=== PATIENT | female | born 1965 | race Caucasian/White ===

== ENCOUNTER 2022-01-12 14:09 | Emergency (ER) | payer MEDICAID, OTHER ==
[~2022-01-12] VITALS: Ht 157.5 cm; Wt 53.5 kg
[2022-01-12 14:18] VITALS: BP 158/111
[2022-01-12 23:41] LABS: Urine Bacteria MANY /hpf (None Seen); Urine Blood Negative /uL (Negative); Urine Specific Gravity 1.022 (1.001-1.035); Urine WBC 20 /hpf (0 - 5)
== END 2022-01-12 23:30 | disposition left against medical advice (07) ==
LOC: ER 14:09
DX: N93.9 Abnormal uterine and vaginal bleeding, unspecified (principal); Z53.21 Procedure and treatment not carried out due to patient leaving prior to being seen by health care provider
CPT/HCPCS: 81001

== ENCOUNTER 2022-01-13 12:31 | Emergency (ER) | payer MEDICAID, OTHER ==
[~2022-01-13] VITALS: Ht 167.6 cm; Wt 53.0 kg
[2022-01-13 12:58] VITALS: BP 142/86
== END 2022-01-14 03:48 | disposition left against medical advice (07) ==
LOC: ER 12:31
DX: R45.851 Suicidal ideations (principal); Z53.29 Procedure and treatment not carried out because of patient's decision for other reasons
CPT/HCPCS: 36415; 80320

== ENCOUNTER 2022-11-20 16:03 | Emergency (ER) | payer MEDICAID, OTHER ==
[~2022-11-20] VITALS: Ht 162.6 cm; Wt 53.8 kg
[2022-11-20 18:24] LABS: Urine Bacteria FEW /hpf (None Seen); Urine Blood Negative /uL (Negative); Urine Clarity HAZY (Clear); Urine Color Yellow (Yellow); Urine Protein, UAD TRACE (Negative); Urine Specific Gravity 1.019 (1.001-1.035); Urine WBC 55 /hpf (0 - 5); Urine pH 6.5 (5.0-8.0)
[2022-11-20] MEDS ORDERED: CIPR-173 PO (18:29)
[2022-11-20 18:36] VITALS: BP 176/95; PULSE 86; RESP 17; TEMP 99.2; O2SAT 98
== END 2022-11-20 18:37 | disposition home or self-care (01) ==
LOC: ER 16:03
DX: N39.0 Urinary tract infection, site not specified (principal); F17.210 Nicotine dependence, cigarettes, uncomplicated; F12.10 Cannabis abuse, uncomplicated; F15.10 Other stimulant abuse, uncomplicated; F11.10 Opioid abuse, uncomplicated; F14.10 Cocaine abuse, uncomplicated; Z88.2 Allergy status to sulfonamides
CPT/HCPCS: 81001

== ENCOUNTER 2022-11-22 09:54 | Emergency (ER) | payer MEDICAID, OTHER ==
[~2022-11-22] VITALS: Ht 170.2 cm; Wt 51.5 kg
[~2022-11-22 09:54] MED LIST: CIPR-173 PO
[2022-11-22 10:30] VITALS: PULSE 77; RESP 14; O2SAT 98
[2022-11-22 10:52] LABS: Basophils # (auto) 0.1 10 ^3/uL (0-0.2); Eosinophils # (auto) 0.1 10 ^3/uL (0-0.8); Eosinophils % (auto) 1.9 % (0.0-7.0); Hematocrit 40.3 % (36.0-46.0); Hemoglobin 13.3 g/dL (12.2-16.2); Lymphocytes % (auto) 27.3 % (10.0-50.0); Mean Corpuscular Hemoglobin 31.2 pg (28.0-32.0); Mean Corpuscular Hgb Conc. 32.9 g/dL (32.0-36.0); Mean Corpuscular Volume 94.8 fL (80.0-100.0); Monocytes # (auto) 0.6 10 ^3/uL (0-1.3); Monocytes % (auto) 8.4 % (0.0-12.0); Neutrophils # (auto) 4.5 10 ^3/uL (1.6-8.6); Neutrophils % (auto) 61.4 % (37.0-80.0); Nucleated Red Blood Cells % 0.5 %; Red Blood Cells 4.25 10^6/uL (4.0-5.20); Red Cell Distribution Width 12.8 % (11.8-14.3); White Blood Cell 7.3 10^3/uL (4.4-10.8)
[2022-11-22 11:15] LABS: Acetaminophen 2.8 ug/mL (10-30); Alanine Aminotransferase 24 U/L (13-56); Anion Gap 9 (5-15); Aspartate Aminotransferase 27 U/L (15-37); Blood Alcohol < 3.0 mg/dL (<10); Blood Urea Nitrogen 24 mg/dL (7-18); Carbon Dioxide 23 mmol/L (21-32); Chloride 107 mmol/L (98-107); Glucose 91 mg/dL (74-106); Potassium 4.3 mmol/L (3.5-5.1); Salicylate < 1.7 mg/dL (2.8-20.0); Sodium 139 mmol/L (136-145)
[2022-11-22 11:18] LABS: Alkaline Phosphatase 85 U/L (45-117); BUN/Creatinine Ratio 31.6 (10.0-20.0); Bilirubin, Total 0.9 mg/dL (0.2-1.0); GFR African American 101 mL/min; GFR Non-African American 84 mL/min; Total Protein 7.5 g/dL (6.4-8.2)
[2022-11-22 14:31] LABS: Alcohol, Urine < 3.0 mg/dL (0-10); Amphetamine Screen, Urine POSITIVE (NEGATIVE); Barbiturate Scree,Urine NEGATIVE (NEGATIVE); Benzodiazephine Screen, Urine NEGATIVE (NEGATIVE); Cocaine Screen, Urine NEGATIVE (NEGATIVE); Opiate Scree,Urine NEGATIVE (NEGATIVE); Phencyclidine Screen, Urine NEGATIVE (NEGATIVE)
[2022-11-22 14:39] LABS: Cannabinoid Screen, Urine POSITIVE (NEGATIVE)
[2022-11-22 21:21] VITALS: PULSE 89; RESP 20; O2SAT 92
[2022-11-22] MEDS: OLANZapine 5 MG TAB PO SCH (22:29)
[2022-11-23 09:58] VITALS: PULSE 77; RESP 14; O2SAT 98
[2022-11-23] MEDS: OLANZapine 5 MG TAB PO SCH (12:10)
[2022-11-23] MEDS ORDERED: LORazepam 2MG/ML-1ML VIAL ONE (13:10)
[2022-11-23] MEDS ORDERED: LORazepam 2MG/ML-1ML VIAL IM ONE (13:15)
[2022-11-23 17:43] VITALS: BP 133/76; PULSE 73; RESP 18; TEMP 97.5; O2SAT 99
== END 2022-11-23 18:26 | disposition short-term general hospital (02) ==
LOC: ER 09:54
DX: F23 Brief psychotic disorder (principal); F15.10 Other stimulant abuse, uncomplicated; F41.9 Anxiety disorder, unspecified; F17.210 Nicotine dependence, cigarettes, uncomplicated; F12.90 Cannabis use, unspecified, uncomplicated; Z59.00 Homelessness unspecified
CPT/HCPCS: 36415; 80053; 80307; 80320; 80329; 84443; 85025; 96372; 99285; J2060

== ENCOUNTER 2024-11-27 08:32 | Emergency (ER) | payer SELFPAY ==
[~2024-11-27] VITALS: Ht 170.2 cm; Wt 54.6 kg
[2024-11-27] MEDS ORDERED: NAP500T PO (09:05)
--- NOTE | 2024-11-27 09:05 | ED.PDOC ---
Eye-HPI HPI Comments 59-year-old female presents with auditory disturbances following surgery for thoracic outlet syndrome. The patient reports that she hears a beeping sound in her ears which began approximately one year ago following that procedure for thoracic outlet syndrome at [facility] Also complains of bilateral atraumatic foot pain to the volar aspect of the fat pads. No trauma no injury but pain is aggravated with the extensive walking Chief Complaint: Earache Time Seen by MD: 08:39 Primary Care Provider: VIKAS Reviewed Notes: Nurses Notes, Medications Allergies: Coded Allergies: Theophylline (Verified Allergy, Severe, 11/27/24) Sulfa Antibiotics (Unverified Allergy, Unknown, 11/08/14) Home Meds Active Scripts Naproxen (NAPROSYN TABLET) 500 Mg Tb, 1 TAB PO BID for 10 Days, #20 TAB 0 Refills Prov:JEFF KIDD NP 11/27/24 Ciprofloxacin Hcl (Cipro) 500 Mg Tab, 1 TAB PO BID, #14 TAB Prov:RAMÍREZ العلي MD 11/20/22 Information Source: Patient Mode of Arrival: Ambulatory Past Medical History PAST MEDICAL HISTORY: Anxiety Surgical History: Hysterectomy PEDORTHIST History: No Pertinent PEDORTHIST History Family History Family History: Unobtainable Social History Smoker: Cigarettes Alcohol: Occasionally Drugs: Cocaine, Heroin, Marijuana, Methamphetamine Lives In: Home All Other Systems: Reviewed and Negative (Per HPI) Physical Exam General Appearance: No Apparent Distress, Normal HEENT: Normal ENT Inspection, Pharynx Normal, TMs Normal Neck: Full Range of Motion, Non-Tender, Normal, Normal Inspection Respiratory: Chest Non-Tender, Lungs Clear, No Accessory Muscle Use, No Respiratory Distress, Normal Breath Sounds Cardiovascular: No Edema, No JVD, No Murmur, No Gallop, Normal Peripheral Pulses, Regular Rate/Rhythm Breast Exam: Deferred Gastrointestinal: No Organomegaly, Non Tender, No Pulsatile Mass, Normal Bowel Sounds, Soft Genitalia: Deferred Pelvic: Deferred Rectal: Deferred Extremities: No calf tenderness, Normal capillary refill, Normal inspection, Normal range of motion, Non-tender, No pedal edema Musculoskeletal : Location: Bilateral Extremity Location: Foot (Gross abnormality. No erythema no open wounds full range of motion. Dorsiflexion plantar flexion strong neurovascular sensation is intact and cap refill less than three) Apperance: Normal Neurologic: Alert, low pressure boiler tender II-XII nml as Tested, No Motor Deficits, Normal Affect, Normal Mood, No Sensory Deficits Cerebellar Function: Normal Reflexes: Normal Skin: Dry, Normal Color, Warm Lymphatic: No Adenopathy Was a procedure done? Was a procedure done?: No EENT DIFF Eye: Other X-Ray, Labs, Meds, VS Vital Signs Date Time Temp Pulse Resp B/P (MAP) Pulse Ox O2 Delivery O2 Flow Rate FiO2 11/27/24 09:18 82 15 98 Room Air 11/27/24 09:18 98.0 82 15 152/66 (94) 98 98.0 11/27/24 08:33 98.0 82 15 189/89 98 98.0 X-Ray, Labs, Meds, VS Comment Patient presents for post surgical symptoms after thoracic outlet syndrome surgery over one year ago. Patient complains of a beeping sound in her ears that comes and goes with no specific patterns. She also complains of bilateral foot pain. No indication for x-rays at this time. We will prescribe NSAIDs as needed for pain. Advised to take with food. Patient is stable for discharge at this time. External notes reviewed. Test results and diagnostic imaging interpreted. All diagnostic findings, discharge care, education and instructions provided Follow-up with PCP in 2 to 3 days Patient verbalized understanding and agreed to treatment plan Vital signs stable, afebrile, no acute distress noted Patient ambulatory with strong steady gait Advised to return precautions for any new or worsening symptoms, return to ER immediately for re-evaluation Patient is aware that the purpose of this visit was for an acute medical emergency requiring emergent stabilization. Chronic conditions, including malignancies have not been ruled out. Patient is instructed to follow up with PCP as directed and discharge instructions for continued care and workup. If unable to arrange follow-up, patient is to return to the emergency department for reassessment. Patient (parent or legal guardian if applicable) was given verbal and written discharge instructions and acknowledges understanding. Time of 1ST Reevaluation: 09:04 Reevaluation 1ST: Improved Patient Education/Counseling: Diagnosis, Treatment Family Education/Counseling: Diagnosis, Treatment SEPSIS Sepsis Screen Date sepsis recognized/suspect: Nov 27, 2024 Time Sepsis recognized/suspect: 0835 Recent Procedure: No On Antibiotic Therapy: No Respiratory Rate >20: No Heart Rate >90: No Temp<36 C (96.8 F) or >38.3 C: No SBP <90 or MAP <65 mmHG: No New Acute Mental Status Change: No Is the patient on CPAP, BIPAP,: No Vital Signs Date Time Temp Pulse Resp B/P (MAP) Pulse Ox O2 Delivery O2 Flow Rate FiO2 11/27/24 09:18 82 15 98 Room Air 11/27/24 09:18 98.0 82 15 152/66 (94) 98 98.0 11/27/24 08:33 98.0 82 15 189/89 98 98.0 Departure 1 Departure Time of Disposition: 09:05 Impression: Primary Impression: Foot pain, bilateral Disposition: 01 HOME / SELF CARE / HOMELESS Condition: Stable e-Prescriptions Naproxen (NAPROSYN TABLET) 500 Mg Tb 1 TAB PO BID for 10 Days, #20 TAB 0 Refills Prov: JEFF KIDD NP 11/27/24 Discharged With: Self Critical Care Note Critical Care Time?: No Stability Stability form required: No Heart Score Heart Score: Heart Score Response (Comments) Value History N/A 0 EKG N/A 0 Age N/A 0 Risk Factors N/A 0 Troponin N/A 0 Total 0 JEFF KIDD NP Nov 27, 2024 09:05
[2024-11-27 09:18] VITALS: BP 152/66; PULSE 82; RESP 15; TEMP 98; O2SAT 98
== END 2024-11-27 09:28 | disposition home or self-care (01) ==
LOC: ER 08:32
DX: M79.671 Pain in right foot (principal); M79.672 Pain in left foot; F41.9 Anxiety disorder, unspecified; F17.210 Nicotine dependence, cigarettes, uncomplicated; Z90.710 Acquired absence of both cervix and uterus; Z88.2 Allergy status to sulfonamides; Z88.8 Allergy status to other drugs, medicaments and biological substances

== ENCOUNTER 2024-11-27 17:50 | Emergency (ER) | payer MEDICAID ==
[~2024-11-27] VITALS: Ht 160 cm; Wt 55.5 kg
[~2024-11-27 17:50] MED LIST changes: +NAP500T PO
--- NOTE | 2024-11-27 18:47 | ED.PDOC ---
History of Present Illness HPI Comments 59 y/o homeless F, with a history of anxiety and polysubstance abuse, presents for c/c palpitations. Patient is a poor historians. She endorses on having palpitations on and off for an undetermined length of time. Denies any chest pain, shortness of breath, fever, chills, or further associated symptoms. Chief Complaint: Pelvic Pain Time Seen by MD: 18:30 Primary Care Provider: DENIES Reviewed Notes: Nurses Notes, Medications, Allergies Allergies: Coded Allergies: Theophylline (Verified Allergy, Severe, 11/27/24) Sulfa Antibiotics (Unverified Allergy, Unknown, 11/08/14) Home Meds Active Scripts Naproxen (NAPROSYN TABLET) 500 Mg Tb, 1 TAB PO BID for 10 Days, #20 TAB 0 Re fills Prov:JEFF KIDD COMMUNITY SERVICE REPRESENTATIVE 11/27/24 Ciprofloxacin Hcl (Cipro) 500 Mg Tab, 1 TAB PO BID, #14 TAB Prov:RAMÍREZ العلي MD 11/20/22 Information Source: Patient Mode of Arrival: Ambulatory Severity: Moderate Timing: Other (unknown) Duration: Since onset Prehospital treatment: None Past Medical History PAST MEDICAL HISTORY: Anxiety Surgical History: Hysterectomy ADVERTISING SALES MANAGER History: No Pertinent ADVERTISING SALES MANAGER History Family History Family History: Unobtainable Social History Smoker: Cigarettes Alcohol: Occasionally Drugs: Cocaine, Heroin, Marijuana, Methamphetamine Lives In: Homeless All Other Systems: Reviewed and Negative (Comprehensive systems review obtained and negative except for what is stated in the HPI.) Physical Exam General Appearance: No Apparent Distress, Normal, Other (Unkept appearance ) HEENT: Normal ENT Inspection, Pharynx Normal, TMs Normal Neck: Full Range of Motion, Non-Tender, Normal, Normal Inspection Respiratory: Chest Non-Tender, Lungs Clear, No Accessory Muscle Use, No Respiratory Distress, Normal Breath Sounds Cardiovascular: No Edema, No JVD, No Murmur, No Gallop, Normal Peripheral Pulses, Regular Rate/Rhythm Breast Exam: Deferred Gastrointestinal: No Organomegaly, Non Tender, No Pulsatile Mass, Normal Bowel Sounds, Soft Genitalia: Deferred Pelvic: Deferred Rectal: Deferred Extremities: No calf tenderness, Normal capillary refill, Normal inspection, Normal range of motion, Non-tender, No pedal edema Musculoskeletal : Apperance: Normal Neurologic: Alert, fresh foods technician II-XII nml as Tested, No Motor Deficits, Normal Affect, Normal Mood, No Sensory Deficits Cerebellar Function: Normal Reflexes: Normal Skin: Dry, Normal Color, Warm Lymphatic: No Adenopathy Was a procedure done? Was a procedure done?: No Differential Dx Considerations may include: arrhythmia, anxiety, panic attack, homelessness, dehydration, electrolyte imbalance, among others X-Ray, Labs, Meds, VS Vital Signs Date Time Temp Pulse Resp B/P (MAP) Pulse Ox O2 Delivery O2 Flow Rate FiO2 11/27/24 20:33 72 20 96 Room Air 11/27/24 20:33 98.0 72 20 158/72 (100) 96 98.0 11/27/24 17:52 98.1 74 19 161/77 96 98.1 Time of 1ST Reevaluation: 19:00 Reevaluation 1ST: Unchanged Patient Education/Counseling: Diagnosis, Treatment Family Education/Counseling: No Family Present SEPSIS Sepsis Screen Date sepsis recognized/suspect: Nov 27, 2024 Time Sepsis recognized/suspect: 1751 Recent Procedure: No On Antibiotic Therapy: No Respiratory Rate >20: No Heart Rate >90: No Temp<36 C (96.8 F) or >38.3 C: No SBP <90 or MAP <65 mmHG: No New Acute Mental Status Change: No Is the patient on CPAP, BIPAP,: No Physician Orders Electrocardigram (11/27/24 18:43) Vital Signs Date Time Temp Pulse Resp B/P (MAP) Pulse Ox O2 Delivery O2 Flow Rate FiO2 11/27/24 20:33 72 20 96 Room Air 11/27/24 20:33 98.0 72 20 158/72 (100) 96 98.0 11/27/24 17:52 98.1 74 19 161/77 96 98.1 Departure 1 Departure Time of Disposition: 20:00 Impression: Primary Impression: Palpitations Disposition: HOME / SELF CARE / HOMELESS Condition: Stable Discharged With: Self Critical Care Note Critical Care Time?: No Stability Stability form required: No Heart Score Heart Score: Heart Score Response (Comments) Value History N/A 0 EKG N/A 0 Age N/A 0 Risk Factors N/A 0 Troponin N/A 0 Total 0 I personally scribed for KRYSTIAN PATTERSON MD ([email or web address]) on 11/27/24 at 18:47. Electronically submitted by Beau Castro ([email or web address]). KRYSTIAN PATTERSON MD Nov 27, 2024 18:47
[2024-11-27 20:33] VITALS: BP 158/72; PULSE 72; RESP 20; TEMP 98; O2SAT 96
== END 2024-11-27 20:35 | disposition home or self-care (01) ==
LOC: ER 17:50
DX: R00.2 Palpitations (principal); F41.9 Anxiety disorder, unspecified; F17.210 Nicotine dependence, cigarettes, uncomplicated; Z88.2 Allergy status to sulfonamides; Z88.8 Allergy status to other drugs, medicaments and biological substances; Z90.710 Acquired absence of both cervix and uterus